=== PATIENT | male | born 1965 | race Caucasian/White ===

== ENCOUNTER 2016-09-16 05:54 | Day surgery (SDC) | payer OTHER ==
[~2016-09-16 05:54] MED LIST: IV START KIT ONE; LACTATED RINGERS 1,000 ML ONE
[2016-09-16] MEDS ORDERED: MIDAZOLAM HCL 5 MG/5 ML VIAL ONE (06:50)
[2016-09-16] MEDS ORDERED: FENTANYL 250 MCG/5 ML AMP ONE (06:50)
[2016-09-16] MEDS ORDERED: MIDAZOLAM HCL 5 MG/5 ML VIAL IV PRN (07:05)
[2016-09-16] MEDS ORDERED: FENTANYL 250 MCG/5 ML AMP IV PRN (07:05)
[2016-09-16] MEDS ORDERED: LACTATED RINGERS 1,000 ML IV SCH (07:15)
== END 2016-09-16 08:35 | disposition home or self-care (01) ==
LOC: SDC 05:54
PROVIDERS: ATTEND Family Medicine
PROC: 0DJD8ZZ Inspection of Lower Intestinal Tract, Via Natural or Artificial Opening Endoscopic (ICD-10-PCS; principal; 2016-09-16)
DX: Z12.11 Encounter for screening for malignant neoplasm of colon (principal); Z80.1 Family history of malignant neoplasm of trachea, bronchus and lung
CPT/HCPCS: 45378; J3010; J2250 ×2; J7120 ×2